=== PATIENT | female | born 1965 | race Caucasian/White ===

== ENCOUNTER 2021-01-28 01:51 | Emergency (ER) | payer OTHER, SELFPAY ==
[2021-01-28 01:59] VITALS: BP 158/86; PULSE 87; RESP 17; TEMP 36.6; O2SAT 99
--- NOTE | 2021-01-28 02:07 | ED.EXTPRO ---
HPI - Extremity Problem General Chief complaint: Extremity Problem,Nontraumatic Stated complaint: pain in left calf Time Seen by Provider: 01/28/21 01:57 Source: patient History of Present Illness HPI Narrative: Patient presents with left lower extremity pain. Symptoms started over 24 hours ago. Reports pain initially started in her ankle and radiating up her medial thighs now on the medial aspect of her thigh. Pain is achy, constant, worse with walking around, radiates up her leg. She called a virtual physician and was recommended that she go to the ER for evaluation of a DVT. Patient denies any chest pain or shortness of breath denies any nausea or vomiting denies any trauma to the area she was unsure if her leg is swollen. Related Data Allergies Allergy/AdvReac Type Severity Reaction Status Date / Time No Known Allergies Allergy Verified 01/28/21 02:07 Review of Systems Review of Systems: CONSTITUTIONAL: Denies fever, chills, or sweats. EYES: Denies visual changes, redness, or discharge. ENT: Denies rhinorrhea, congestion, sore throat, or otalgia. CARDIOVASCULAR: Denies chest pain, palpitations, or edema. RESPIRATORY: Denies cough or dyspnea. GASTROINTESTINAL: Denies abdominal pain, nausea, vomiting, or diarrhea. GENITOURINARY: Denies dysuria or hematuria. SKIN: Denies rash or itching. MUSCULOSKELETAL: Denies back pain, joint pain, or myalgia. NEUROLOGIC: Denies headache, numbness, dizziness, or weakness. PSYCHIATRIC: Denies anxiety or depression. All systems reviewed & are unremarkable except as noted in HPI and below PMFSH Past Medical History Medical History (Updated 01/28/21 @ 02:11 by Panchito Tejada MD) Patient denies significant medical history Family History Family History Mother Hypertension Grandparent Carcinoma of colon Other Family history of lung cancer Social History Social History Smoking status: Never smoker Alcohol intake: current Exam Narrative: GENERAL: Well-appearing, well-nourished, and in no acute distress. HEAD: Normocephalic, atraumatic. EYES: PERRLA and EOMI. ENT: Nares clear, no rhinorrhea or epistaxis. Mucous membranes moist. NECK: Supple. No masses. No JVD EXTREMITIES: Normal range of motion. Minimal tenderness with palpation of the medial aspect of the left leg proximal to the knee compartments in the lower extremity are soft patient has 2+ DP pulses sensation intact to light touch there is no open or draining wounds no pitting edema no focal areas of fluctuance or erythema SKIN: Warm, dry, no rash. NEURO: No focal deficits. Alert and oriented x3. PSYCH: Normal mood and affect. Course Reevaluation(s) Reevaluation #1: Patient is resting comfortably results reviewed with patient. Patient was scheduled for DVT ultrasound this morning at 7 AM with radiology. Patient is comfortable with further imaging in the morning. Date: 01/28/21 Time: 02:47 Vital Signs Vital signs: Vital Signs Temperature 36.6 C 01/28/21 01:59 Pulse Rate 87 01/28/21 01:59 Respiratory Rate 17 01/28/21 01:59 Blood Pressure 158/86 H 01/28/21 01:59 Pulse Oximetry 99 01/28/21 01:59 Temperature 36.6 C 01/28/21 01:59 Pulse Rate 87 01/28/21 01:59 Respiratory Rate 17 01/28/21 01:59 Blood Pressure 158/86 H 01/28/21 01:59 Pulse Oximetry 99 01/28/21 01:59 MDM - Extremity (Nontraumatic) MDM Narrative Medical decision making narrative: H&P as above, vss, pt looks clinically well, exam mild tenderness palpation of the left leg, labs clinically unremarkable, img scheduled for this morning, additional labs/img considered, symptomatic relief available as needed, on reevaluation pt continues to looks clinically well. Symptoms remain of unclear etiology they likely represent a soft tissue strain there is a lower clinical concern for DVT given the patient's lack of mg
[2021-01-28 02:24] LABS: Basophils Absolute Auto 0.1 K/mm3 (0.0-0.1); Basophils Percent Auto 0.7 % (0.2-1.2); Eosinophils Absolute Auto 0.3 K/mm3 (0-0.3); Hemoglobin 13.9 g/dL (12.0-15.0); Immature Granulocyte Absolute 0.02 K/mm3 (0.00-0.031); Immature Granulocyte Percent A 0.2 % (0-0.5); Lymphocytes Absolute Auto 2.68 K/mm3 (0.9-3.2); Lymphocytes Percent Auto 31.9 % (18.3-44.2); Mean Corpuscular HGB Conc 35.6 g/dl (32-36); Mean Corpuscular Hemoglobin 33.3 pg (26-34); Mean Corpuscular Volume 93.3 fl (80-100); Mean Platelet Volume 11.1 fl (7.4-10.4); Monocytes Absolute Auto 0.7 K/mm3 (0.1-0.6); Monocytes Percent Auto 7.9 % (2.6-8.5); Neutrophils Absolute Auto 4.6 K/mm3 (1.3-6.7); Neutrophils Percent Auto 55.3 % (45.5-73.1); Platelet Count Result 262 k/mm3 (150-375); Red Blood Count 4.18 M/mm3 (4.2-5.4); Red Cell Distribution Width 11.6 % (11.5-14.5); White Blood Count 8.4 K/mm3 (4.5-10.0)
[2021-01-28 02:37] LABS: Anion Gap 11 mmol/L (8-16); Blood Urea Nitrogen 17 mg/dL (7-17); Calcium 8.9 mg/dL (8.4-10.2); Carbon Dioxide 24 mmol/L (22-30); Chloride 106 mmol/L (98-107); Creatine Kinase 129 U/L (30-135); Estimated CRCL calculation 76 ml/min; Estimated Glomerular Filt Rate > 60; Glucose 110 mg/dL (65-110); Potassium 3.7 mmol/L (3.4-5.0); Sodium 141 mmol/L (137-145)
[2021-01-28 02:39] LABS: Prothrombin Time 13.3 Seconds (11.1-14.7)
[2021-01-28 02:40] LABS: Partial Thromboplastin Time 27.6 SECONDS (22.3-36.8)
== END 2021-01-28 02:56 | disposition home or self-care (01) ==
LOC: ANHED 02:17
PROVIDERS: Emergency Provider Emergency Medicine
DX: M79.605 Pain in left leg (principal)
CPT/HCPCS: 36415; 80048; 82550; 85025; 85610; 85730; 93971; 99283

== ENCOUNTER 2021-01-28 07:15 | Outpatient (CLI) | payer OTHER, SELFPAY ==
--- NOTE | ~2021-01-28 | US_ITS ---
EXAMINATION: US venous doppler [facility] DATE: 01/28/2021 07:56 INDICATION: Left lower limb pain TECHNIQUE: Rock scale images without and with compression and Doppler images of the left lower extrem ity veins were obtained. COMPARISON: None FINDINGS: The left common femoral vein, profunda femoral vein, femoral vein, popliteal vein, peroneal trunk, posterior tibial veins, and greater saphenous vein are patent. IMPRESSION: 1. Patent left lower extremity veins. No evidence of deep venous thrombosis. Reviewed, dictated and finalized at location A. [facility]
== END 2021-01-28 07:16 | disposition home or self-care (01) ==
DX: M79.662 Pain in left lower leg (principal)
CPT/HCPCS: 93971